=== PATIENT | female | born 1980 | race Two or more races ===

== ENCOUNTER 2018-06-27 03:35 | Inpatient (IN) | payer MEDICAID ==
[2018-06-27] MEDS ORDERED: RINGERS SOLUTION,LACTATED 1,000 ML IV PRN (03:51)
[2018-06-27] MEDS ORDERED: OXYTOCIN 10 UNIT/ML VIAL ONE (03:54)
[2018-06-27] MEDS ORDERED: MISOPROSTOL 0.2 MG TABLET ONE (03:54)
[2018-06-27] MEDS ORDERED: LIDOCAINE 1% INJ-PF (10 MG/ML) 30 ML SDV ONE (03:55)
[2018-06-27] MEDS ORDERED: OXYTOCIN/NORMAL SALINE 20 UNIT/1,000 ML RTUINJ ONE (03:55)
[2018-06-27] MEDS ORDERED: RINGERS SOLUTION,LACTATED 1,000 ML IV ONE (04:00)
[2018-06-27 04:23] LABS: ABSOLUTE EOSINOPHILS # (AUTO) 0.1 10^3/uL (0.0-0.6); ABSOLUTE LYMPHOCYTES (AUTO) 3.5 10^3/uL (0.5-4.7); ABSOLUTE MONOCYTES (AUTO) 0.9 10^3/uL (0.1-1.4); BASOPHILS % (AUTO) 0.2 % (0-2); EOSINOPHILS % (AUTO) 0.8 % (0-6); HEMOGLOBIN 14.2 g/dL (12.0-15.5); LYMPHOCYTES % (AUTO) 30.8 % (13-45); MEAN CORPUSCULAR HEMOGLOBIN 31.8 pg (27.0-33.4); MEAN CORPUSCULAR HGB CONC 34.7 g/dL (32.0-36.0); MEAN CORPUSCULAR VOLUME 92 fl (80-97); MONOCYTES % (AUTO) 7.5 % (3-13); PLATELET COUNT 237 10^3/uL (150-450); RED BLOOD COUNT 4.47 10^6/uL (3.72-5.28); RED CELL DISTRIBUTION WIDTH 13.6 % (11.5-14.0); SEGMENTED NEUTROPHILS % (AUTO) 60.7 % (42-78); TOTAL CELLS COUNTED % (AUTO) 100 %; WHITE BLOOD COUNT 11.5 10^3/uL (4.0-10.5)
[2018-06-27] MEDS ORDERED: EPHEDRINE SULFATE INJ 50 MG/1 ML AMPULE ONE (04:36)
[2018-06-27] MEDS ORDERED: FENTANYL/BUPIVACAINE/NS/PF 300 MCG/150 ML RTUINJ EPI ONE (04:36)
[2018-06-27] MEDS ORDERED: BUPIVACAINE HCL 0.25 % INJ/PF (2.5 MG/1 ML) 30 ML VIAL ONE (04:37)
[2018-06-27 04:43] LABS: URINE AMPHETAMINES SCREEN NEGATIVE; URINE BARBITURATES SCREEN NEGATIVE; URINE BENZODIAZEPINES SCREEN NEGATIVE; URINE COCAINE SCREEN NEGATIVE; URINE MARIJUANA (THC) SCREEN NEGATIVE; URINE METHADONE SCREEN NEGATIVE; URINE PHENCYCLIDINE SCREEN NEGATIVE
[2018-06-27] MEDS ORDERED: OXYTOCIN/NORMAL SALINE 20 UNIT/1,000 ML RTUINJ IV PRN ×2 (05:40→09:21)
[2018-06-27] MEDS ORDERED: NA PHOS,M-B/NA PHOS,DI-BA (ADULT) 133 ML ENEMA PR PRN (09:21)
[2018-06-27] MEDS ORDERED: ACETAMINOPHEN 650 MG SUPP.RECT PR PRN (09:21)
[2018-06-27] MEDS ORDERED: GLYCERIN/WITCH HAZEL LEAF 1 EACH MED..PAD TP PRN (09:21)
[2018-06-27] MEDS ORDERED: MISOPROSTOL 0.2 MG TABLET PV PRN (09:21)
[2018-06-27] MEDS ORDERED: BENZOCAINE/MENTHOL AEROSOL SPRAY 56 ML TOP PRN (09:21)
[2018-06-27] MEDS ORDERED: PSEUDOEPHEDRINE HCL 30 MG TABLET PO PRN (09:21)
[2018-06-27] MEDS ORDERED: ACETAMINOPHEN WITH CODEINE #3 TABLET PO PRN ×2 (09:21)
[2018-06-27] MEDS ORDERED: PROMETHAZINE HCL 25 MG TABLET PO PRN (09:21)
[2018-06-27] MEDS ORDERED: DIPH/PERTUSS(ACELL)/TETANUS VAC/PF 0.5 ML SYR (>=10YO) IM PRN ×2 (09:21→10:00)
[2018-06-27] MEDS ORDERED: PROMETHAZINE HCL INJ 25 MG/1 ML VIAL IV PRN ×2 (09:21→10:00)
[2018-06-27] MEDS ORDERED: MAGNESIUM HYDROXIDE SUSP 30 ML UDCUP PO PRN ×2 (09:21→10:00)
[2018-06-27] MEDS ORDERED: DIPHENHYDRAMINE HCL 25 MG CAPSULE PO PRN (09:21)
[2018-06-27] MEDS ORDERED: DIBUCAINE 1% OINTMENT 28 GM TP PRN (09:21)
[2018-06-27] MEDS ORDERED: PROMETHAZINE HCL 25 MG SUPP.RECT PR PRN (09:21)
[2018-06-27] MEDS ORDERED: MEASLES,MUMPS&RUBELLA VACC/PF 0.5 ML VIAL SUBCUT PRN ×2 (09:21→10:00)
--- NOTE | 2018-06-27 09:36 | Admission Physical ---
Datetime Report Generated by CPN: 06/27/2018 09:36 CURRENT ADMISSION Hx Assessment: The History has been Reviewed and is Current Chief Complaint: Uterine Contractions Admit Impression : Postterm, Intrauterine ; Active Labor Admit Plan: Admit to Unit ALLERGIES Medication Allergies: No Medication Allergies: No Known Allergies (07/07/2011) Latex: No Latex Allergies OBSTETRICAL HISTORY EDC: 06/30/2018 00:00 : 3 Para: 2 Gestational Diabetes: No Rh Sensitization: No Incompetent Cervix: No RAVI: No Infertility: No ART Treatment: No Uterine Anomaly: No IUGR: No Hx Previous C/S: No Macrosomia: No Hx Loss/Stillborn: No PIH: No Hx : No Placenta Previa/Abruption: No Depression/PP Depression: No PTL/PROM: No Post Hemorrhage: No SEE RECORDS Alcohol: No Marijuana : No Cocaine: No Other Illicit Drugs: No Cigarettes: Never Smoker. [id number] MEDICAL HISTORY Diabetes: No Blood Transfusion: No Pulmonary Disease (Asthma, TB): No Breast Disease: No Hypertension: No Education Technician Surgery: No Heart Disease: No Hosp/Surgery: Yes Autoimmune Disorder: No Anesthetic Complications: No Kidney Disease: No Abnormal Pap Smear: No Neuro/Epilepsy: No Psychiatric Disorders: No Other Medical Diseases: No Hepatitis/Liver Disease: No Significant Family History: No Varicosities/Phlebitis: No Trauma/Violence : No Thyroid Dysfunction: Yes Medical History Comments: wisdom teeth removal, cyst removed from left breast, hypothyroid INFECTIOUS HISTORY Gonorrhea: No Genital Herpes: No Chlamydia: No Tuberculosis: No Syphilis: No Hepatitis: No HIV/AIDS Exposure: No Rash or Viral Illness: No HPV: No PHYSICAL EXAM General: Normal HEENT: Deferred Neurologic: Normal Thyroid: Normal Heart: Normal Lungs: Normal Breast: Deferred Back: Normal Abdomen: Normal Genitourinary Exam: Normal Extremities: Normal DTRs: Normal Pelvic Type: Adequate Physical Exam Comments: AMA Pelvis proven 6-15 Late Care Hypothyroid, synthroid 112mcg FETUS A EGA: 39.4 Monitoring: External US Admit Comment: Admitted to LD in active labor @ 40+ 3, AMA, membranes intact Anticipate on my arrival to unit pt states she does not feel anything due to epidural, asked for epidural to be turned off, AROM, mod mec, epidural off, will start pushing, anticipate , Dr. Bland admitted pt on arrival PLANS FOR LABOR AND DELIVERY Labor and Delivery: Plan Pain Management: Medications; Epidural Feeding Preference: Breast Benefit of Breast Feed Discussed: Yes Circumcision: No INFORMED CONSENT Assignment: Jamsina Bland MD Signature: with User ID: [email or web address] : with User ID: [email or web address]
--- NOTE | 2018-06-27 12:22 | Delivery Summary ---
Del Sum A-C Datetime Report Generated by CPN: 06/27/2018 12:22 DELIVERY PERSONNEL DELIVERY PERSONNEL: [id number] Delivery Doctor:: Hollie Cortes MD Nurse Press And Blow Machine Tender Certified:: Nevaeh Solorio CNM Labor and Delivery Nurse:: Lyudmila Castillo RNtrade recruiter Nurse:: Regi Bryson RN Nursery Nurse:: Karen Gill RN Student Observers:: Tuyet PERKINS Resident Crusher Foreman/SCOTTY: Umm Almanza ST MATERNAL INFORMATION Delivery Anesthesia: Epidural Medications During Delivery: Tuyet Ashraf RN RN resident Medications After Delivery: Pitocin Drip 20 Units/1000ml NSS; Cytotec 600mcg Per Rectum/Vagina Maternal Complications: None LABOR SUMMARY EDC: 06/30/2018 00:00 No. Babies in Womb: 1 Attempted: No Labor Anesthesia: Epidural LABOR INFORMATION Reason for Induction: Not Applicable Onset of Labor: 06/27/2018 03:47 Complete Dilatation: 06/27/2018 08:06 Oxytocin: Augmentation Group B Beta Strep: neg Antibiotics # of Doses: 0 Steroids Given: None Reason Steroids Not Administered: Not Applicable MEMBRANES Membranes Rupture Method: Artificial Rupture of Membranes: 06/27/2018 08:14 Length of Rupture (hr): 0.90 Amniotic Fluid Color: Moderate Meconium Amniotic Fluid Amount: Moderate STAGES OF LABOR Stage 1 hr: 4 Stage 1 min: 19 Stage 2 hr: 1 Stage 2 min: 2 Stage 3 hr: 0 Stage 3 min: 2 Total Time in Labor hr: 5 Total Time in Labor min: 23 VAGINAL DELIVERY Episiotomy: None Laceration #1: None Laceration Extension #1: N/A Laceration Repair: Not Applicable Sponge Count Correct: N/A Sharps Count Correct: N/A CSECTION DELIVERY Primary Indication: N/A Secondary Indication: N/A CSection Incidence: N/A Labor: N/A Elective: N/A CSection Incision: N/A BABY A INFORMATION Infant Delivery Date/Time: 06/27/2018 09:08 Method of Delivery: Vaginal Born in Route : No : N/A Forceps: N/A Vacuum Extraction: Successful Shoulder Dystocia : No ASSISTED DELIVERY BABY A Station Vacuum/Forcep Apply: Kiwi Applied by Dr. Younger PRESENTATION/POSITION BABY A Presentation: Cephalic Cephalic Presentation: Vertex Breech Presentation: N/A PLACENTA INFORMATION BABY A Placenta Delivery Time : 06/27/2018 09:10 Placenta Method of Delivery: Spontaneous Placenta Status: Delivered SCORES BABY A Heart Rate 1 min: >100 bpm Resp Effort 1 min: Good Cry Reflex Irritability 1 min: Cough or Sneeze or Pulls Away Muscle Tone 1 min: Active Motion Color 1 min: Blue/Pale Resuscitation Effort 1 min: N/A SCORE 1 MIN: 8 Heart Rate 5 min: >100 bpm Resp Effort 5 min: Good Cry Reflex Irritability 5 min: Cough or Sneeze or Pulls Away Muscle Tone 5 min: Active Motion Color 5 min: Body [place], Extremities Blue Resuscitation Effort 5 min: N/A SCORE 5 MIN: 9 INFANT INFORMATION BABY A Gestational Age at Delivery: 39.4 Gestational Status: Full Term- 39- 40.6 Weeks Outcome : Liveborn Condition : Stable Infant Sex: Male IDENTIFICATION BABY A Verification Date/Time: 06/27/2018 09:20 ID Band Number: [id number] Mother's Name Verified: Yes RN Verifying : Norma bryson, RN/ JLotus Wong, RN WEIGHT/LENGTH BABY A Infant Birthweight (gm): 2965 Infant Weight (lb): 6 Infant Weight (oz): 9 Infant Length (in): 20.25 Infant Length (cm): 51.44 CORD INFORMATION BABY A No. Cord Vessels: 3 Nuchal Cord : N/A Cord Blood Taken: Yes-For Storage (Mom's Blood type +) Suction: None ASSESSMENT BABY A Complications: None Physical Findings at Delivery: Molding of the Head Respirations: Appears Normal Skin to Skin: Yes Skin to Skin Time (min): 60 Fugitive Detective/ALS Called : No Infant Care By: Farhan Liang, GREGORIO Transferred To: Remains with Mother BABY B INFORMATION : N/A
[2018-06-27] MEDS: IBUPROFEN 800 MG TABLET PO SCH ×2 (13:18→21:46)
[2018-06-27] MEDS: DOCUSATE SODIUM 100 MG CAPSULE PO SCH ×2 (14:10→18:14)
[2018-06-27] MEDS: PRENATAL VITAMIN W DHA CAPSULE PO SCH (14:11)
[2018-06-27] MEDS: SENNOSIDES/DOCUSATE 8.6-50 MG 1 EACH TABLET PO SCH (14:11)
[2018-06-27] MEDS: FERROUS SULFATE 325 MG TABLET PO SCH ×2 (14:11→18:14)
[2018-06-27] MEDS: FAMOTIDINE 20 MG TABLET PO SCH (14:11)
[2018-06-28] MEDS: FAMOTIDINE 20 MG TABLET PO SCH ×4 (05:20→22:50)
[2018-06-28] MEDS: IBUPROFEN 800 MG TABLET PO SCH ×3 (05:21→22:45)
[2018-06-28 07:12] LABS: HEMATOCRIT 37.4 % (36.0-47.0); HEMOGLOBIN 12.6 g/dL (12.0-15.5); MEAN CORPUSCULAR HEMOGLOBIN 31.3 pg (27.0-33.4); MEAN CORPUSCULAR HGB CONC 33.8 g/dL (32.0-36.0); MEAN CORPUSCULAR VOLUME 92 fl (80-97); PLATELET COUNT 191 10^3/uL (150-450); RED BLOOD COUNT 4.04 10^6/uL (3.72-5.28); RED CELL DISTRIBUTION WIDTH 13.6 % (11.5-14.0); WHITE BLOOD COUNT 12.3 10^3/uL (4.0-10.5)
[2018-06-28] MEDS: FERROUS SULFATE 325 MG TABLET PO SCH ×3 (09:15→18:47)
[2018-06-28] MEDS: SENNOSIDES/DOCUSATE 8.6-50 MG 1 EACH TABLET PO SCH (09:15)
[2018-06-28] MEDS: DOCUSATE SODIUM 100 MG CAPSULE PO SCH ×3 (09:15→18:47)
[2018-06-28] MEDS: PRENATAL VITAMIN W DHA CAPSULE PO SCH (09:15)
--- NOTE | 2018-06-28 13:23 | PDOC PROGRESS REPORT ---
Subjective-OB Progress Note for:: 06/28/18 Subjective: Pt doing well, no concerns. She reports light bleeding, reg diet and voiding without difficulty. Physical Exam (OB) Vital Signs: Temp Pulse Resp BP Pulse Ox 97.7 F 78 16 117/69 98 06/28/18 08:27 06/28/18 08:27 06/28/18 08:27 06/28/18 08:27 06/28/18 08:27 Intake & Output 06/27/18 06/28/18 06/29/18 06:59 06:59 06:59 Output Total 400 Balance -400 Weight 70.3 kg - Abdomen Description: Soft, Round Hernia Present: No Fundal Description: Firm, Midline Fundal Height: u/u - u/2 Objective-Diagnostic Laboratory: 06/28/18 06:50 06/28/18 06:50 WBC 12.3 H RBC 4.04 Hgb 12.6 Hct 37.4 MCV 92 MCH 31.3 MCHC 33.8 RDW 13.6 Plt Count 191 Assessment and Plan(PN) - Assessment and Plan (1) Advanced maternal age (AMA) in Is this a current diagnosis for this admission?: Yes (2) Vacuum extraction, delivered, current hospitalization Is this a current diagnosis for this admission?: Yes - Time Spent with Patient Time with patient: Less than 15 minutes Medications reviewed and adjusted accordingly: Yes - Disposition Anticipated Discharge: Home Within: within 24 hours
[2018-06-29] MEDS: IBUPROFEN 800 MG TABLET PO SCH ×2 (05:30→13:49)
[2018-06-29 08:22] VITALS: BP 127/82
--- NOTE | 2018-06-29 08:54 | PDOC DISCHARGE SUMMARY ---
Final Diagnosis Discharge Date: 06/29/18 - Final Diagnosis (1) Advanced maternal age (AMA) in Is this a current diagnosis for this admission?: Yes (2) Vacuum extraction, delivered, current hospitalization Is this a current diagnosis for this admission?: Yes Discharge Data Reason(s) for Admission: Onset of Labor Procedures: NST Intrapartum Procedure(s): Vacuum Extraction - Diagnosis Test Laboratory: Temp Pulse Resp BP Pulse Ox 97.7 F 78 16 117/69 98 06/28/18 08:27 06/28/18 08:27 06/28/18 08:27 06/28/18 08:27 06/28/18 08:27 06/27/18 06/27/18 06/28/18 03:39 04:04 06:50 RBC 4.47 4.04 Hgb 14.2 12.6 Hct 41.0 37.4 Urine Opiates Screen NEGATIVE - Discharge information/Instructions Discharge Activity: Balance Activity w/Rest, Pelvic Rest Discharge Diet: Regular Disposition: HOME, SELF-CARE Follow up with: [facility] in: 3, Weeks
[2018-06-29] MEDS: PRENATAL VITAMIN W DHA CAPSULE PO SCH (09:47)
[2018-06-29] MEDS: SENNOSIDES/DOCUSATE 8.6-50 MG 1 EACH TABLET PO SCH (09:48)
[2018-06-29] MEDS: DOCUSATE SODIUM 100 MG CAPSULE PO SCH (09:48)
[2018-06-29] MEDS: FAMOTIDINE 20 MG TABLET PO SCH (09:50)
[2018-06-29] MEDS: FERROUS SULFATE 325 MG TABLET PO SCH (09:50)
== END 2018-06-29 15:15 | disposition home or self-care (01) | DRG 807 ==
LOC: LC 03:35 → LR 03:51 → 2S 11:46
PROVIDERS: ADMIT Student in an Organized Health Care Education/Training Program; ATTEND Student in an Organized Health Care Education/Training Program
PROC: 10D07Z6 Extraction of Products of Conception, Vacuum, Via Natural or Artificial Opening (ICD-10-PCS; principal; 2018-06-27)
PROC: 10907ZC Drainage of Amniotic Fluid, Therapeutic from Products of Conception, Via Natural or Artificial Opening (ICD-10-PCS; 2018-06-27)
PROC: 4A1HXCZ Monitoring of Products of Conception, Cardiac Rate, External Approach (ICD-10-PCS; 2018-06-27)
DX: O77.0 Labor and delivery complicated by meconium in amniotic fluid (principal); Z37.0 Single live birth; Z3A.39 39 weeks gestation of pregnancy
CPT/HCPCS: 36415; 80307; 85025; 85027; 86592; 86850; 86900; 86901; 94760; J2590; J3010; J3490

== ENCOUNTER 2018-07-06 02:02 | Emergency (ER) | payer MEDICAID, BC ==
[2018-07-06 04:15] LABS: HEMOGLOBIN 13.7 g/dL (12.0-15.5); MEAN CORPUSCULAR HGB CONC 34.3 g/dL (32.0-36.0); MEAN CORPUSCULAR VOLUME 93 fl (80-97); PLATELET COUNT 288 10^3/uL (150-450); RED BLOOD COUNT 4.29 10^6/uL (3.72-5.28); RED CELL DISTRIBUTION WIDTH 12.7 % (11.5-14.0); WHITE BLOOD COUNT 21.1 10^3/uL (4.0-10.5)
[2018-07-06 04:47] LABS: ABSOLUTE LYMPHOCYTES# (MANUAL) 1.7 10^3/uL (0.5-4.7); ABSOLUTE MONOCYTES # (MANUAL) 1.3 10^3/uL (0.1-1.4); ABSOLUTE NEUTROPHILS# (MANUAL) 18.1 10^3/uL (1.7-8.2); BASOPHILS % (MANUAL) 0 % (0-2); EOSINOPHILS % (MANUAL) 0 % (0-6); LYMPHOCYTES % (MANUAL) 6 % (13-45); MONOCYTES % (MANUAL) 6 % (3-13); SEGMENTED NEUTROPHILS % (MAN) 86 % (42-78); TOTAL CELLS COUNTED 100
[2018-07-06 04:48] LABS: PLATELET CLUMPS PRESENT; PLATELET COMMENT ADEQUATE; SCHISTOCYTES SLIGHT; TOXIC GRANULATION 1+
[2018-07-06] MEDS ORDERED: NORMAL SALINE 1000 ML 1,000 ML IV ONE (04:54)
--- NOTE | 2018-07-06 04:56 | ER Document Report ---
ED General - General Chief Complaint: Vaginal Bleeding Stated Complaint: VAGINAL BLEEDING Time Seen by Provider: 07/06/18 04:19 Notes: Patient is a 38-year-old female who presents to the emergency department with vaginal bleeding. Her bleeding started at 2100 this evening. She states that she has soaked any pads since that time, but does not know the exact amount. She does complain of abdominal discomfort. She states that she did not bleed very much during her first week of . She has only had a little bit of spotting the past few days, and when she saw a gush of clots come out, she was concerned and wanted to come to the emergency department. She denies any nausea, vomiting, or diarrhea, but stated she felt nauseous when her bleeding started tonight. She states that she might have had a fever, but was not sure because she did not check her temperature. According to the patient she also "passed out," but did not lose consciousness. She is 9 days . She had a normal delivery. TRAVEL OUTSIDE OF THE [place] IN LAST 30 DAYS: No - Related Data Allergies/Adverse Reactions: No Known Allergies Allergy (Unverified 07/07/11 03:39) Past Medical History - Social History Smoking Status: Former Smoker Frequency of alcohol use: None Drug Abuse: None Lives with: Spouse/Significant other Family History: Reviewed & Not Pertinent Patient has suicidal ideation: No Patient has homicidal ideation: No Renal/ Medical History: Denies: Hx Peritoneal Dialysis Review of Systems - Review of Systems Notes: REVIEW OF SYSTEMS: CONSTITUTIONAL : Denies recent illness. Denies recent unintentional weight loss. Denies fever, chills, or sweats. EENT: Denies eye, ear, throat, or mouth pain, discharge, or symptoms. Denies nasal or sinus congestion. CARDIOVASCULAR: Denies chest pain. RESPIRATORY: Denies shortness of breath, cough, congestion, difficulty breathing, or wheezing. GASTROINTESTINAL: Denies nausea, vomiting, and diarrhea. Denies abdominal pain. Denies constipation. Last BM: GENITOURINARY: Denies difficulty urinating, burning, blood in urine, urgency or frequency. FEMALE GENITOURINARY: See HPI MUSCULOSKELETAL: Denies neck and back pain. Denies joint pain or swelling. SKIN: Denies rash, itchiness, or lesions HEMATOLOGIC : Denies easy bruising or bleeding. LYMPHATIC: Denies swollen, painful, enlarged glands. NEUROLOGICAL: Denies no numbness or tingling denies weakness. Denies headache. Denies altered mental status. Denies alteration in speech. PSYCHIATRIC: Denies stress, anxiety, alteration in sleep patterns, or depression. All other systems reviewed and negative. Physical Exam - Vital signs Vitals: Temp Pulse Resp BP Pulse Ox 98.1 F 111 H 17 102/65 98 07/06/18 02:07 07/06/18 02:07 07/06/18 02:07 07/06/18 02:07 07/06/18 02:07 - Notes Notes: PHYSICAL EXAMINATION: GENERAL: Healthy, well-nourished, no acute distress. HEAD: Normocephalic, atraumatic. EYES: PERRL, conjunctiva normal, all extraocular movements intact, sclera nonicteric ENT: Moist mucous membranes. NECK: Supple, no noticeable swelling, redness, rash. Normal range of motion. LUNGS: Equal breath sounds bilaterally and clear to auscultation. No wheezes rales or rhonchi. CARDIOVASCULAR: S1-S2, tachycardic, regular rhythm. Radial pulses 2+, normal. ABDOMEN: Normoactive bowel sounds. Soft, tender, no guarding, no rebound tenderness, and no masses palpated. Fundus palpated about 2 cm below the umbilicus EXTREMITIES: Normal strength and range of motion, no pitting or edema. No cyanosis. NEUROLOGICAL: Moves all extremities upon command. Strength 5/5 in all extremiti es. PSYCH: Normal mood, normal affect. SKIN: Warm, dry. No rash, lesions, ulcerations noted. Normal skin turgor. REPRODUCTIVE: dark red lochia noted with clots. Course - Re-evaluation Re-evalutation: 04:45 Patient will receive a normal saline bolus. Labs will be sent and check to see if she has had an acute drop in her hemoglobin and hematocrit. 06:45 Her hemoglobin and hematocrit have actually improved from discharge on June 27. I spoke with Dr. Benson, the ACUTE CARE ASSISTANT on-call and he recommends 800 mcg of Cytotec CO, a gram of Rocephin, and to have a pelvic ultrasound to check for remnants of placenta. 07:00 I spoke with the patient and she states that she remembers receiving medication to help have contractions post delivery, because she did not have a lot of lochia after she delivered. 07/06/18 08:[address] Gordon, the OB on-call. She is recommending that the patient be started on doxycycline and Flagyl for 10 days and [facility]. I spoke with the patient and she is in understanding of these instructions. Her heart rate has improved to the 90s and she is normotensive. Verbal discharge instructions were given to the patient. They verbalized understanding. They are stable for discharge. - Vital Signs Vital signs: Temp Pulse Resp BP Pulse Ox 98.5 F 111 H 14 125/80 96 07/06/18 09:15 07/06/18 02:07 07/06/18 09:15 07/06/18 09:15 07/06/18 09:14 - Laboratory Result Diagrams: 07/06/18 03:35 Laboratory results interpreted by me: 07/06/18 03:35 WBC 21.1 H Seg Neuts % (Manual) 86 H Lymphocytes % (Manual) 6 L Abs Neuts (Manual) 18.1 H Discharge - Discharge Clinical Impression: Vaginal bleeding bleeding Qualifiers: hemorrhage type: unspecified Qualified Code(s): O72.1 - Other immediate hemorrhage Condition: Stable Disposition: HOME, SELF-CARE Additional Instructions: You were seen in the emergency department for vaginal bleeding after having a baby. You have been prescribed antibiotics per the ABAP DEVELOPER recommendation. Please make sure that you finish your antibiotics as prescribed. Even if you feel better, please continue to take your medication. Please follow up with [facility] on Sunday. Call them first thing in the morning and make an appointment. Let them know that you were seen here in the emergency department. You may take Motrin 800 mg every 8 hours and Tylenol every 6 hours as needed for your pain. Be sure to massage your abdomen. It is normal to have bleeding up to a few weeks after having a baby. If you develop a fever greater than 100.4 F, pass out, have worsening symptoms, or have any symptoms that are worrisome to you, please return to the emergency department. Please supplement your baby with formula while you are on these antibiotics. Please ask the ACUTE CARE ASSISTANT on Sunday if it is appropriate for you to continue breast- feeding while you are on these antibiotics. You can continue to pump while you are on antibiotics, but do not give the baby the milk until the ACUTE CARE ASSISTANT confirms that these medications are safe for breast-feeding. Prescriptions: Doxycycline Hyclate 100 mg PO BID #20 capsule Metronidazole [Flagyl 500 mg Tablet] 500 mg PO BID #20 tablet Referrals: PILAR CLEANING MD [[facility]] - 07/08/18
[2018-07-06] MEDS ORDERED: CEFTRIAXONE INJ 1000 MG VIAL IV ONE (06:52)
[2018-07-06] MEDS ORDERED: HYDROMORPHONE HCL INJ/PF 2 MG/ML AMPULE IV ONE (06:52)
[2018-07-06] MEDS ORDERED: MISOPROSTOL 0.2 MG TABLET PR ONE (06:57)
--- NOTE | 2018-07-06 08:29 | RADIOLOGY REPORT (SQ) ---
EXAM DESCRIPTION: U/S NON OB PEL W/DOPPLER COMPLETED DATE/TIME: 07/06/2018 7:49 am REASON FOR STUDY: 9 days bleeding COMPARISON: None. TECHNIQUE: Dynamic and static grayscale images acquired of the pelvis via transabdominal approach an d recorded on PACS. Additional selected color Doppler and spectral images recorded. LIMITATIONS: None. FINDINGS: UTERUS: Enlarged consistent with recent state. ENDOMETRIAL STRIPE: Diffusely thickened and heterogeneous endometrium with thickening up to 7.2 cm. CERVIX: No nabothian cysts. RIGHT OVARY AND DOPPLER: Ovary not visualized. LEFT OVARY AND DOPPLER: Ovary not visualized. FREE FLUID: None noted. OTHER: No other significant finding. MEASUREMENTS: UTERUS: 15 x 9 x 10 cm. ENDOMETRIAL STRIPE: As above. IMPRESSION: uterine enlargement. There is fairly extensive heterogeneous thickening of t he endometrium. Concerning for retained products. TECHNICAL DOCUMENTATION: JOB ID: [id number] [employer]- All Rights Reserved Rev-11/16 Reading location - IP/workstation name: [email or web address]
[2018-07-06 10:20] VITALS: BP 125/80
== END 2018-07-06 09:10 | disposition home or self-care (01) ==
LOC: ER 02:02
DX: O72.1 Other immediate postpartum hemorrhage (principal); O99.89 Other specified diseases and conditions complicating pregnancy, childbirth and the puerperium; R10.9 Unspecified abdominal pain; Z87.891 Personal history of nicotine dependence
CPT/HCPCS: 36415; 87040; 85025; 76856; 93976; J1170; J0696; J7030

== ENCOUNTER 2018-08-21 10:26 | Day surgery (SDC) | payer BC, MEDICAID ==
[2018-08-15 11:40] LABS: HEMATOCRIT 40.6 % (36.0-47.0); MEAN CORPUSCULAR HGB CONC 34.4 g/dL (32.0-36.0); MEAN CORPUSCULAR VOLUME 90 fl (80-97); PLATELET COUNT 312 10^3/uL (150-450); RED BLOOD COUNT 4.51 10^6/uL (3.72-5.28); RED CELL DISTRIBUTION WIDTH 11.9 % (11.5-14.0); WHITE BLOOD COUNT 5.8 10^3/uL (4.0-10.5)
[2018-08-15 11:56] LABS: APPEARANCE,URINE CLEAR; BILIRUBIN,URINE NEGATIVE (NEGATIVE); COLOR,URINE STRAW; GLUCOSE, URINE NEGATIVE (NEGATIVE); KETONES,URINE NEGATIVE (NEGATIVE); LEUKOCYTE ESTERASE,URINE NEGATIVE (NEGATIVE); NITRITE,URINE NEGATIVE (NEGATIVE); PROTEIN,URINE NEGATIVE (NEGATIVE); URINE SPECIFIC GRAVITY 1.015; UROBILINOGEN,URINE NEGATIVE mg/dL (<2.0)
[~2018-08-21 10:26] MED LIST: LACTATED RINGERS 1000 ML IV PRN; LIDOCAINE 0.5% INJ-PF (5 MG/ML) 50 ML SDV SUBCUT PRN
[2018-08-21] MEDS ORDERED: BUPIVACAINE HCL 0.25 % INJ/PF (2.5 MG/1 ML) 30 ML VIAL ONE (10:53)
[2018-08-21] MEDS ORDERED: PROPOFOL INJ 200 MG/20 ML VIAL IV ONE (11:00)
[2018-08-21] MEDS ORDERED: MIDAZOLAM 2 MG/2 ML INJ ONE (11:00)
[2018-08-21] MEDS ORDERED: FENTANYL CITRATE INJ/PF 100 MCG/2 ML AMPUL ONE (11:00)
[2018-08-21] MEDS ORDERED: ACETAMINOPHEN 1,000 MG/100 ML RTUPB IV ONE (11:00)
[2018-08-21] MEDS ORDERED: SUCCINYLCHOLINE CHLORIDE INJ 200 MG/10 ML VIAL ONE (11:42)
[2018-08-21] MEDS ORDERED: DIPHENHYDRAMINE HCL 50 MG/ML VIAL IV PRN (12:47)
[2018-08-21] MEDS ORDERED: FENTANYL CITRATE INJ/PF 100 MCG/2 ML AMPUL IV PRN ×3 (12:47)
[2018-08-21] MEDS ORDERED: PROMETHAZINE HCL INJ 25 MG/1 ML VIAL IV PRN ×2 (12:47)
[2018-08-21] MEDS ORDERED: MEPERIDINE HCL/PF INJ 25 MG/1 ML DISP.SYRIN IV PRN (12:47)
[2018-08-21] MEDS ORDERED: OXYCODONE-ACETAMINOPHEN 5-325 MG TABLET PO PRN ×2 (12:47)
[2018-08-21] MEDS ORDERED: MEPERIDINE HCL/PF INJ 25 MG/1 ML DISP.SYRIN ONE (13:24)
[2018-08-21] MEDS: FENTANYL CITRATE INJ/PF 100 MCG/2 ML AMPUL ONE ×3 (13:33→13:48)
--- NOTE | 2018-08-21 13:41 | Operative Report ---
Operative Report DATE OF SURGERY: 08/21/18 PREOPERATIVE DIAGNOSIS: Multiparity, undesired fertility POSTOPERATIVE DIAGNOSIS: KIMBERLEE, Endometriosis OPERATION: Operative Laparoscopy with Bilateral Tubal Ligation with Filschie clips SURGEON: LUBNA OLIVIA ANESTHESIA: GA TISSUE REMOVED OR ALTERED: none COMPLICATIONS: None ESTIMATED BLOOD LOSS: less than 5ml INTRAOPERATIVE FINDINGS: normal AV uterus, no adnexal masses, diffuse endometriosis implants throughout pelvis, bilateral tubes and ovaries normal, some endometriosis implants on ovaries, also in anterior and posterior cul de sac and on bilateral sidewalls. Filschie clips time 1 placed on each tube. PROCEDURE: Anesthesiologist: Phillip IV fluids: [750ml] Urine output: [200ml] Indications: [38yo multiparous patient with undesired fertility. She desires permanent sterilization. She has completed childbearing. THe risks, benefits, alternatives were reviewed and she desires to proceed with planned procedure Laparoscopic Bilateral Tubal Ligation.] Procedure: The patient was taken to the operating room where general anesthesia was obtained without difficulty. The patient was then examined under anesthesia with findings as noted above with a small anteverted uterus and no adnexal mass. She was then placed in dorsal supine lithotomy position and prepped and draped in the normal sterile fashion. A sponge stick for uterine manipulator was then advanced into the vagina to provide a means of manipulation of the uterus. The speculum and tenaculum were then removed from the patient's cervix and vagina. Attention was then turned to the patient's abdomen where a 5 mm infraumbilical skin incision was then made. The Optiview trocar with 0 laparoscope was then advanced without difficulty under direct visualization with the Optiview trocar. This was performed while tenting the abdominal wall and these will fashion. Intraperitoneal placement was confirmed by the direct visualization. Pneumoperitoneum was then obtained with approximately 4 L carbon dioxide gas. Survey of the patient's abdomen and pelvis revealed findings as noted above. A second skin incision was then made approximately 2cm superior to the symphysis pubis in the midline. These incisions were made under direct visualization with the laparoscope. The second trochar were then advanced under direct visualization of the laparoscope at the sites. The right fallopian tube was then identified and followed out to the fimbriated end and the Filschie clip was placed in the mid ampullary portion of the fallopian tube. The right ovary was noted to be normal and vasculature remained intact to this ovary. Attention was then turned to the left adnexa at which time the left fallopian tube was identified and followed out to the fimbriated end and filschie clip was placed in the mid ampullary portion of the fallopian tube. The left ovary was normal with vasculature intact. Bilateral fallopian tubes with filschie clips times one placed. Diffuse endometriosis noted throughout pelvis. All operative sites were visualized and noted to be hemostatic. The additional trochar in the patient's midline was removed under direct visualization. The 5 mm trocar was then removed after abdominal insufflation was removed. The skin at all trocar sites were closed with 3-0 Monocryl in a subcuticular fashion with overlying Dermabond. No antibiotics were indicated for this procedure. After completion of skin closure of the trocar sites attention was then turned to the vagina where the sponge stick uterine manipulator was removed. Sponge lap needle and instrument counts were correct 3. The patient tolerated the procedure well and was taken to the recovery area awake and in stable condition.
[2018-08-21] MEDS ORDERED: ONDANSETRON HCL INJ/PF 4 MG/2 ML SDV IV PRN (13:45)
[2018-08-21] MEDS ORDERED: HYDROMORPHONE HCL INJ/PF 2 MG/ML AMPULE IV PRN (13:45)
[2018-08-21] MEDS ORDERED: MORPHINE SULFATE 10 MG/ML INJ ONE (14:04)
[2018-08-21] MEDS ORDERED: ONDANSETRON HCL INJ/PF 4 MG/2 ML SDV ONE (14:58)
[2018-08-21 16:36] VITALS: BP 116/73
== END 2018-08-21 16:35 | disposition home or self-care (01) ==
LOC: OROUT 10:26
PROVIDERS: ATTEND Student in an Organized Health Care Education/Training Program
DX: Z30.2 Encounter for sterilization (principal); E03.9 Hypothyroidism, unspecified; Z87.891 Personal history of nicotine dependence; Z01.818 Encounter for other preprocedural examination; Z32.02 Encounter for pregnancy test, result negative; Z79.899 Other long term (current) drug therapy
CPT/HCPCS: 58671; 36415; 85027; 81005; 81025; J2250; J3010; J2175; J2270; J0330; J2405; J2704; J0131; 851